=== PATIENT | male | born 1990 | race Caucasian/White ===

== ENCOUNTER 2018-08-14 12:15 | Emergency (ER) | payer OTHER, SELFPAY ==
[2018-08-14] MEDS ORDERED: NA CHLORIDE 0.9% 1,000 ML ONE (13:17)
--- NOTE | 2018-08-14 13:23 | RAD REPORT ---
EXAM DESCRIPTION: CT - Stone Protocol - 08/14/2018 1:02 pm CLINICAL HISTORY: Hematuria, dysuria, left flank pain COMPARISON: None. TECHNIQUE: Axial 5 mm thick images were obtained without oral or IV contrast. The [id number] span s the entirety of the system including uppermost abdomen and lung bases. All CT scans are performed using dose optimization technique as appropriate and may include automated exposure control or mA/KV adjustment according to patient size. FINDINGS: No hydronephrosis is present and no obstructing ureteral calculi. No suspicious renal mass es. Isodense masses and pyelonephritis are not excluded on a stone protocol CT scan. No urinary bladd er suspicious finding. Imaged portions of the liver, spleen and pancreas show no focal findings on non-contrast imaging. Karla er attenuation indicates a mild diffuse fatty infiltration. No gallbladder or biliary tree abnormalit y. No significant adrenal finding. No suspicious bowel findings. Appendix is normal. No acute GI process seen. No mass or bulky lymphadenopathy. Patient has a very small umbilical hernia containing only fat. No i nguinal hernia is seen. No free air, free fluid or inflammatory stranding. No significant bony abnormality. IMPRESSION: Negative CT stone protocol study. Isodense masses and pyelonephritis are not excluded on stone protocol technique. Incidental note of mild diffuse fatty infiltration of the liver.
[2018-08-14 13:29] LABS: Absolute Lymphocytes (CBC) 1.6 K/uL (0.7-4.9); Absolute Monocytes 1.5 K/uL (0.1-1.3); Basophils % 0.4 % (0-1.3); Eosinophils % 0.3 % (0-4.4); Hematocrit 45.9 % (39.6-49.0); Lymphocytes % 10.1 % (15.3-44.8); MCV 87.9 fL (80-100); MPV 9.6 fL (7.6-11.3); RBC Red Blood Cell Count 5.22 M/uL (4.33-5.43)
[2018-08-14 13:43] LABS: Albumin 3.6 g/dL (3.4-5.0); Bilirubin Direct 0.2 mg/dL (0-0.2); Bilirubin Total 0.7 mg/dL (0.2-1.0); Potassium 3.9 mmol/L (3.5-5.1); Protein, Total 7.7 g/dL (6.4-8.2)
[2018-08-14 14:05] LABS: Urine Blood 3+ (NEG); Urine Glucose NEGATIVE (NEG); Urine Protein 2+ (NEG); Urine Specific Gravity 1.025 (1.005-1.030)
[2018-08-14] MEDS ORDERED: CEFTRIAXONE/SWI 1gm 1 GM/10 ML SYR ONE (14:17)
--- NOTE | 2018-08-14 15:57 | ER ---
Nurse's Notes [facility] Name: Ace Brasher Age: 27 yrs Sex: Male : 1990 Arrival Date: 08/14/2018 Time: 12:17 Bed 8 Private MD: Diagnosis: Urinary tract infection, site not specified Presentation: 08/14 12:36 Presenting complaint: Patient states: Blood in urine and painful urination since aj yesterday. Reports occasional sharp pain to left flank this AM. Transition of care: patient was not received from another setting of care. Onset of symptoms was August 13, 2018. Risk Assessment: Do you want to hurt yourself or someone else? Patient reports no desire to harm self or others. Initial Sepsis Screen: Does the patient meet any 2 criteria? No. Patient's initial sepsis screen is negative. Does the patient have a suspected source of infection? No. Patient's initial sepsis screen is negative. Care prior to arrival: None. 12:36 Method Of Arrival: Ambulatory aj 12:36 Acuity: KRISTIE 3 aj Triage Assessment: 12:37 General: Appears in no apparent distress. uncomfortable, Behavior is calm, cooperative, aj appropriate for age. Pain: Complains of pain in pelvis. Neuro: Level of Consciousness is awake, alert, obeys commands, Oriented to person, place, time, situation, Appropriate for age. Respiratory: Airway is patent Respiratory effort is even, unlabored, Respiratory pattern is regular, symmetrical. : Reports burning with urination, pain in left flank(s), blood in urine. Derm: Skin is intact, is healthy with good turgor, Skin is pink, warm \\T\\ dry. normal. 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 - Social history:: Smoking status: Patient uses tobacco products, smokes one-half pack cigarettes per day. - Ebola Screening: : Patient negative for fever greater than or equal to 101.5 degrees Fahrenheit, and additional compatible Ebola Virus Disease symptoms Patient denies exposure to infectious person Patient denies travel to an Ebola-affected area in the 21 days before illness onset No symptoms or risks identified at this time. Screenin:58 Abuse screen: Denies threats or abuse. Nutritional screening: No deficits noted. tw2 Tuberculosis screening: No symptoms or risk factors identified. Fall Risk None identified. Assessment: 12:59 General: Appears in no apparent distress. Behavior is calm, cooperative, appropriate tw2 for age. Pain: Complains of pain in left flank. Neuro: Level of Consciousness is awake, alert, obeys commands, Oriented to person, place, time, situation. Cardiovascular: Heart tones S1 S2 Patient's skin is warm and dry. Respiratory: Airway is patent Respiratory effort is even, unlabored, Respiratory pattern is regular, symmetrical, Breath sounds are clear bilaterally. GI: No signs and/or symptoms were reported involving the gastrointestinal system. : Reports burning with urination. EENT: No signs and/or symptoms were reported regarding the EENT system. Derm: No signs and/or symptoms reported regarding the dermatologic system. Musculoskeletal: Range of motion: intact in all extremities. 13:22 Reassessment: PT RETURNED FROM CT. ALL CURRENT ORDERS COMPLETED, RESULTS PENDING. VS bp STABLE ON MONITOR. 14:07 Reassessment: Patient appears in no apparent distress at this time. No changes from tw2 previously documented assessment. Patient and/or family updated on plan of care and expected duration. Pain level reassessed. Patient is alert, oriented x 3, equal unlabored respirations, skin warm/dry/pink. 15:00 Reassessment: Patient appears in no apparent distress at this time. No changes from tw2 previously documented assessment. Patient and/or family updated on plan of care and expected duration. Pain level reassessed. Patient is alert, oriented x 3, equal unlabored respirations, skin warm/dry/pink. 16:02 Reassessment: Patient appears in no apparent distress at this time. No changes from tw2 previously documented assessment. Patient and/or family updated on plan of care and expected duration. Pain level reassessed. Patient is alert, oriented x 3, equal unlabored respirations, skin warm/dry/pink. Vital Signs: 12:37 BP 125 / 87; Pulse 97; Resp 17; Temp 98.5; Pulse Ox 96% on R/A; Weight 127.01 kg; aj Height 5 ft. 7 in. (170.18 cm); 13:25 BP 114 / 81; Pulse 82; Resp 16; Pulse Ox 94% ; bp 14:07 BP 122 / 73; Pulse 81; Resp 17; Pulse Ox 97% on R/A; tw2 14:39 BP 90 / 77; Pulse 82; Resp 14; Pulse Ox 96% ; bp 16:03 BP 114 / 71; Pulse 80; Resp 17; Pulse Ox 99% on R/A; tw2 12:37 Body Mass Index 43.85 (127.01 kg, 170.18 cm) ED Course: 12:17 Patient arrived in ED. mr 12:31 Rod Bobby, GUILLERMO is PHCP. jmm 12:31 Kumar Hankins MD is Attending Physician. [facility] 12:37 Triage completed. aj 12:37 Arm band placed on left wrist. Patient placed in an exam room. 12:40 Bed in low position. Call light in reach. Pulse ox on. NIBP on. tw2 12:57 Arlene Roberson, MUSA is Primary Nurse. tw2 12:[address] via wheelchair. 3 13:02 CT completed. Patient tolerated procedure well. Patient moved back from CT. 3 13:03 CT Stone Protocol In Process Unspecified. EDMS 13:14 Initial lab(s) drawn, by wi, sent to lab. Inserted saline lock: 22 gauge in right jb1 antecubital area, using aseptic technique. Blood collected. 15:30 Patient moved to radiology via stretcher. 1 15:31 X-ray completed. Patient tolerated procedure well. 1 15:35 Chest Pa And Lat (2 Views) XRAY In Process Unspecified. EDMS 16:03 No provider procedures requiring assistance completed. IV discontinued, intact, tw2 bleeding controlled, No redness/swelling at site. Pressure dressing applied. Administered Medications: 13:20 Drug: NS 0.9% 1000 ml Route: IV; Rate: 1 bolus; Site: right antecubital; bp 15:20 Follow up: Response: No adverse reaction; IV Status: Completed infusion; IV Intake: tw2 1000ml 14:13 Drug: Rocephin - (cefTRIAXone) 1 grams {Note: IVP available only from pharmacy, tw2 provider aware.} Route: IVPB; Infused Over: 5 mins; Site: right antecubital; 14:17 Follow up: IV Status: Completed infusion tw2 15:02 Follow up: Response: No adverse reaction tw2 Intake: 15:20 IV: 1000ml; Total: 1000ml. tw2 Outcome: 15:57 Discharge ordered by . karoline 16:03 Discharged to home ambulatory. tw2 16:03 Condition: stable 16:03 Discharge instructions given to patient, Instructed on discharge instructions, follow up and referral plans. medication usage, Demonstrated understanding of instructions, follow-up care, medications, Prescriptions given X 1. 16:03 Patient left the ED. tw2 Signatures: Dispatcher [employer] EDMS Norberto Hall jb1 Talia Fang, RN RN Rod Frank PA PA jmm Rivera, Mary mr OsielJocelynn mh1 Arlene Roberson RN RN tw2 Ron Coley RN RN Lynn Harrell mw3
--- NOTE | 2018-08-14 15:57 | EDPHYS ---
Physician Documentation [facility] Name: Ace Brasher Age: 27 yrs Sex: Male : 1990 Arrival Date: 08/14/2018 Time: 12:17 Bed 8 Private MD: ED Physician Kumar Hankins HPI: 08/14 12:52 This 27 yrs old Male presents to ER via Ambulatory with complaints of Urinary jmm Problem, Fever, Dizziness. 12:52 The patient complains of pain in the left flank. The pain does not radiate. Onset: The jmm symptoms/episode began/occurred gradually, 1 day(s) ago. Associated signs and symptoms: Pertinent positives: dysuria, fever, hematuria. This is a 27 year old male with a history of histocytosis that presents to the ED with right flank pain beginning yesterday with dysuria. . 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 - Social history:: Smoking status: Patient uses tobacco products, smokes one-half pack cigarettes per day. - Ebola Screening: : Patient negative for fever greater than or equal to 101.5 degrees Fahrenheit, and additional compatible Ebola Virus Disease symptoms Patient denies exposure to infectious person Patient denies travel to an Ebola-affected area in the 21 days before illness onset No symptoms or risks identified at this time. ROS: 12:52 Eyes: Negative for injury, pain, redness, and discharge, Cardiovascular: Negative for jmm chest pain, palpitations, and edema, Respiratory: Negative for shortness of breath, cough, wheezing, and pleuritic chest pain. 12:52 MS/Extremity: Negative for injury and deformity, Skin: Negative for injury, rash, and discoloration, Neuro: Negative for headache, weakness, numbness, tingling, and seizure. 12:52 Constitutional: Positive for fever. 12:52 Abdomen/GI: Positive for left flank pain. 12:52 Back: Positive for flank pain, on the left. 12:52 All other systems are negative. Exam: 12:52 Head/Face: atraumatic. Chest/axilla: Normal chest wall appearance and motion. [facility] Cardiovascular: Regular rate and rhythm. No edema appreciated Respiratory: Normal respirations, no respiratory distress appreciated Abdomen/GI: Non distended, soft 12:52 Skin: General appearance color normal MS/ Extremity: Moves all extremities, no obvious deformities appreciated, no edema noted to the lower extremities Neuro: Awake and alert, normal gait 12:52 Constitutional: The patient appears in no acute distress, alert, awake. 12:52 Respiratory: the patient does not display signs of respiratory distress, Respirations: normal, Breath sounds: are clear throughout. 12:52 Abdomen/GI: Inspection: abdomen appears normal, Bowel sounds: normal, Palpation: abdomen is soft and non-tender, in all quadrants. 12:52 Back: CVA tenderness, is absent. Vital Signs: 12:37 BP 125 / 87; Pulse 97; Resp 17; Temp 98.5; Pulse Ox 96% on R/A; Weight 127.01 kg; aj Height 5 ft. 7 in. (170.18 cm); 13:25 BP 114 / 81; Pulse 82; Resp 16; Pulse Ox 94% ; bp 14:07 BP 122 / 73; Pulse 81; Resp 17; Pulse Ox 97% on R/A; tw2 14:39 BP 90 / 77; Pulse 82; Resp 14; Pulse Ox 96% ; bp 16:03 BP 114 / 71; Pulse 80; Resp 17; Pulse Ox 99% on R/A; tw2 12:37 Body Mass Index 43.85 (127.01 kg, 170.18 cm) MDM: 12:51 Patient medically screened. [facility] 15:52 Data reviewed: vital signs, nurses notes, lab test result(s). Counseling: I had a [facility] detailed discussion with the patient and/or guardian regarding: the historical points, exam findings, and any diagnostic results supporting the discharge/admit diagnosis, lab results, radiology results, the need for outpatient follow up, to return to the emergency department if symptoms worsen or persist or if there are any questions or concerns that arise at home. 15:52 ED course: Symptoms appear consistent with UTI, CT was negative for an acute [facility] intraabdominal process. Patient given strict return precautions and otherwise advised to follow up with PCP. patient understood and agrees with the plan of care. . 08/14 12:51 Order name: Basic Metabolic Panel [facility] 08/14 12:51 Order name: CBC with Diff; Complete Time: 14:06 [facility] 08/14 12:51 Order name: Creatinine for Radiology; Complete Time: 14:56 [facility] 08/14 12:51 Order name: Hepatic Function; Complete Time: 14:06 [facility] 08/14 12:51 Order name: Lipase; Complete Time: 14:06 [facility] 08/14 12:51 Order name: Basic Metabolic Panel; Complete Time: 14:06 [facility] 08/14 12:51 Order name: CT Stone Protocol; Complete Time: 13:40 [facility] 08/14 12:51 Order name: Urine Culture [facility] 08/14 12:52 Order name: Urine Culture [facility] 08/14 13:21 Order name: Urine Dipstick--Ancillary (enter results); Complete Time: 14:06 3 08/14 14:34 Order name: Chest Pa And Lat (2 Views) XRAY [facility] 08/14 14:34 Order name: Influenza Screen (a \\T\\ B); Complete Time: 15:28 [facility] 08/14 12:51 Order name: IV Saline Lock; Complete Time: 13:15 [facility] 08/14 12:51 Order name: Labs collected and sent; Complete Time: 13:15 [facility] Administered Medications: 13:20 Drug: NS 0.9% 1000 ml Route: IV; Rate: 1 bolus; Site: right antecubital; bp 15:20 Follow up: Response: No adverse reaction; IV Status: Completed infusion; IV Intake: tw2 1000ml 14:13 Drug: Rocephin - (cefTRIAXone) 1 grams {Note: IVP available only from pharmacy, tw2 provider aware.} Route: IVPB; Infused Over: 5 mins; Site: right antecubital; 14:17 Follow up: IV Status: Completed infusion tw2 15:02 Follow up: Response: No adverse reaction tw2 Disposition: 18:03 Co-signature as Attending Physician, Kumar Hankins MD. rn Disposition: 08/14/18 15:57 Discharged to Home. Impression: Urinary tract infection, site not specified. - Condition is Stable. - Discharge Instructions: Urinary Tract Infection, Adult. - Prescriptions for cefpodoxime 200 mg Oral Tablet - take 1 tablet by ORAL route every 12 hours for 10 days with food; 20 tablet. - Medication Reconciliation Form, Thank You Letter, Antibiotic Education, Prescription Opioid Use, Work release form form. - Follow up: Private Physician; When: 2 - 3 days; Reason: Recheck today's complaints, Continuance of care, Re-evaluation by your physician. Signatures: Dispatcher [employer] Talia Oconnell RN RN Rod Frank PA PA jmm Nieto, Roman, MD MD rn Wise, Tara, RN RN tw2 Ron Coley RN RN bp Corrections: (The following items were deleted from the chart) 16:03 15:57 08/14/2018 15:57 Discharged to Home. Impression: Urinary tract infection, site tw2 not specified. Condition is Stable. Forms are Work release form, Medication Reconciliation Form, Thank You Letter, Antibiotic Education, Prescription Opioid Use. Follow up: Private Physician; When: 2 - 3 days; Reason: Recheck today's complaints, Continuance of care, Re-evaluation by your physician. karoline
--- NOTE | 2018-08-14 16:30 | RAD REPORT ---
EXAM DESCRIPTION: Esdras Mooney (2 Views)08/14/2018 3:36 pm CLINICAL HISTORY: Cough COMPARISON: None FINDINGS: The lungs appear clear of acute infiltrate. The heart is normal size IMPRESSION: No acute abnormalities displayed
== END 2018-08-14 16:03 | disposition home or self-care (01) ==
LOC: ER 12:15
DX: N39.0 Urinary tract infection, site not specified (principal); R31.9 Hematuria, unspecified; F17.210 Nicotine dependence, cigarettes, uncomplicated
CPT/HCPCS: 36415; 71046; 74176; 76377; 80048; 80076; 81003; 83690; 85025; 87077; 87086; 87088; 87186; 87804; 96361; 96374; 99284; J0696; J7030

== ENCOUNTER 2021-06-14 02:32 | Emergency (ER) | payer SELFPAY ==
--- OUTSIDE RECORDS SUMMARY | 2021-06-14 02:35 | XMS REPORT | Continuity of Care Document ---
:1990 Author Organization [facility] t Address [address] [place] [address] Care Team Providers Name Role Phone Unavailable Unavailable Unavailable Problems Condition Condition Condition Status Onset Resolution Last Treating Co mments Source Name Details Category Date Date Treatment Clinician Date Morbid Morbid Problem Active [facility] ([facility] obesity obesity Memoria due to due to l excess excess Outpati calories calories ent Clinics Internal Internal Diagnosis Active [facility] derangemen derangemen Emmie kes - t of left t of left [facility] Body mass Body mass Diagnosis Active [facility] index index [facility] - (BMI) of (BMI) of Memori a 40.0-44.9 40.0-44.9 l in adult in adult Outdet i ent Clinics Pain, Pain, Diagnosis Active [facility] joint, joint, [facility] - knee, left knee, left Me moria l [facility] ent Clinics Allergies, Adverse Reactions, Alerts This patient has no known allergies or adverse reactions. Medications This patient has no known medications. Procedures This patient has no known procedures. Encounters Start End Encounter Admission Attending Care Care Encounter Source Date/Time Date/Time Type Type Clinicians Facility Department ID 2019-01-27 2019-01-27 Outpatient Emily Diazt [id number] [facility] [address] 09:30:00 09:30:00 [facility] and [facility] Joint [facility] ent Clinics Results This patient has no known results.
[2021-06-14 06:24] LABS: Absolute Lymphocytes (CBC) 1.4 K/uL (0.7-4.9); Basophils % 0.6 % (0-1.3); Hematocrit 44.6 % (39.6-49.0); Lymphocytes % 12.6 % (15.3-44.8); MPV 9.3 fL (7.6-11.3); Protime INR 1.21; RBC Red Blood Cell Count 5.04 M/uL (4.33-5.43)
[2021-06-14 06:42] LABS: ALT/SGPT 48 U/L (12-78); AST/SGOT 20 U/L (15-37); Albumin 4.2 g/dL (3.4-5.0); Alkaline Phosphatase 55 U/L (45-117); BUN Blood Urea Nitrogen 12 mg/dL (7-18); Bicarbonate 30 mmol/L (21-32); Bilirubin Direct < 0.1 mg/dL (0-0.2); Bilirubin Total 0.4 mg/dL (0.2-1.0); Glucose Level 109 mg/dL (74-106); Magnesium 2.3 mg/dL (1.8-2.4); NT PRO-BNP 17 pg/mL (<125); Potassium 4.2 mmol/L (3.5-5.1); Protein, Total 7.9 g/dL (6.4-8.2); Sodium Level 140 mmol/L (136-145); Troponin (Emerg Dept Use Only) < 0.02 ng/mL (0.0-0.045)
--- NOTE | 2021-06-14 09:09 | RAD REPORT ---
EXAM DESCRIPTION: RAD - Chest Single View - 06/14/2021 6:12 am CLINICAL HISTORY: CHEST PAIN Chest pain. COMPARISON: Chest Pa And Lat (2 Views) dated 08/14/2018 FINDINGS: Portable technique limits examination quality. The lungs are grossly clear. The heart is normal in size. No displaced fractures. IMPRESSION: No acute intrathoracic process suspected.
--- NOTE | 2021-06-14 09:52 | EDPHYS ---
Physician Documentation [facility] Name: Ace Brasher Age: 30 yrs Sex: Male : 1990 Arrival Date: 06/14/2021 Time: 02:36 Bed 13 Private MD: ED Physician Dez Renee HPI: 06/14 06:30 This 30 yrs old Male presents to ER via Ambulatory with complaints of jmm Unsteady Heartbeat, Chest Pain. 06:30 The patient presents with a history of irregular heart beat, heart racing, heart jmm skipping beats. Onset: The symptoms/episode began/occurred acutely, 3 hour(s) ago. Duration: The patient or guardian reports multiple episodes, that are intermittent. Modifying factors: The symptoms are aggravated by nothing. The symptoms are alleviated by nothing. Associated signs and symptoms: Pertinent negatives: chest pain, cough. Is a 30-year-old male with no chronic medical conditions who presents emerge department with complaints of irregular heartbeat beginning approximately 3 hours prior to arrival. Patient denies ingesting any stimulants recently. Patient does smoke and vape tobacco and nicotine products. Patient states when the symptoms developed his heart rate was around 170 and complains of abnormal sensations to his extremities and face.. Historical: - Allergies: 02:55 No Known Allergies; wg - Home Meds: 02:55 None [Active]; wg - PMHx: 02:55 "histocystosis"; wg - PSHx: 02:55 None; wg - Immunization history:: Adult Immunizations. - Social history:: Smoking status: Patient reports the use of cigarette tobacco products, smokes one pack cigarettes per day. Reported history of juuling and/or vaping. - Family history:: not pertinent. - Code Status:: Full code. - History obtained from: significant other. - Coronavirus screen:: The patient has NOT traveled to [place] in the past 14 days. The patient has NOT had contact with known/suspected case of Coronavirus?. - Ebola Screening: : Patient negative for fever greater than or equal to 101.5 degrees Fahrenheit, and additional compatible Ebola Virus Disease symptoms Patient denies exposure to infectious person Patient denies travel to an Ebola-affected area in the 21 days before illness onset No symptoms or risks identified at this time. ROS: 06:30 Constitutional: Negative for fever, chills, and weight loss. [facility] 06:30 Cardiovascular: Positive for palpitations. 06:30 Neuro: Positive for tingling. 06:30 All other systems are negative. Exam: 06:30 Constitutional: This is a well developed, well nourished patient who is awake, alert, jmm and in no acute distress. Head/Face: atraumatic. Eyes: EOMI, no conjunctival erythema appreciated ENT: Moist Mucus Membranes Neck: Trachea midline, Supple Chest/axilla: Normal chest wall appearance and motion. Cardiovascular: Regular rate and rhythm. No edema appreciated Respiratory: Normal respirations, no respiratory distress appreciated Abdomen/GI: Non distended, soft Back: Normal ROM Skin: General appearance color normal MS/ Extremity: Moves all extremities, no obvious deformities appreciated, no edema noted to the lower extremities Neuro: Awake and alert, normal gait Psych: Behavior is normal, Mood is normal, Patient is cooperative and pleasant Vital Signs: 02:47 BP 115 / 78; Pulse 82; Resp 18; Temp 98.6; Pulse Ox 100% on R/A; Weight 129.27 kg; wg Height 5 ft. 7 in. (170.18 cm); Pain 0/10; 06:00 BP 110 / 75; Pulse 59; Resp 16 S; Pulse Ox 97% on R/A; bb 08:10 BP 124 / 86; Pulse 70; Resp 20; Temp 97.0; Pulse Ox 96% on NC; kh1 02:47 Body Mass Index 44.64 (129.27 kg, 170.18 cm) wg MDM: 06:28 Patient medically screened. [facility] 09:34 Data reviewed: vital signs, nurses notes. Counseling: I had a detailed discussion with [facility] the patient and/or guardian regarding: the historical points, exam findings, and any diagnostic results supporting the discharge/admit diagnosis, lab results, radiology results, the need for outpatient follow up, to return to the emergency department if symptoms worsen or persist or if there are any questions or concerns that arise at home. 06/14 05:59 Order name: Basic Metabolic Panel 06/14 05:59 Order name: CBC with Diff 06/14 05:59 Order name: LFT's; Complete Time: 06:42 06/14 05:59 Order name: Magnesium; Complete Time: 06:42 06/14 05:59 Order name: NT PRO-BNP; Complete Time: 06:42 bb 06/14 05:59 Order name: PT-INR; Complete Time: 06:37 bb 06/14 05:59 Order name: Troponin (emerg Dept Use Only); Complete Time: 06:42 bb 06/14 05:59 Order name: XRAY Chest (1 view); Complete Time: 09:31 bb 06/14 05:59 Order name: EKG; Complete Time: 06:00 bb 06/14 05:59 Order name: Cardiac monitoring; Complete Time: 06:07 bb 06/14 05:59 Order name: EKG - Nurse/Tech; Complete Time: 05:59 bb 06/14 05:59 Order name: IV Saline Lock; Complete Time: 05:59 bb 06/14 06:00 Order name: Basic Metabolic Panel; Complete Time: 06:42 EDMS 06/14 06:00 Order name: CBC with Automated Diff; Complete Time: 06:37 EDMS 06/14 05:59 Order name: Labs collected and sent; Complete Time: 05:59 bb 06/14 05:59 Order name: O2 Per Protocol; Complete Time: 05:59 bb 06/14 05:59 Order name: O2 Sat Monitoring; Complete Time: 05:59 bb Administered Medications: No medications were administered Disposition Summary: 06/14/21 09:51 Discharge Ordered Location: Home [facility] Condition: Stable [facility] Diagnosis - Palpitations [facility] Followup: [facility] - With: Rudy Cabezas MD - When: 2 - 3 days - Reason: Recheck today's complaints, Continuance of care, Re-evaluation by your physician Discharge Instructions: - Discharge Summary Sheet [facility] - Palpitations [facility] Forms: - Medication Reconciliation Form [facility] - Thank You Letter [facility] - Antibiotic Education [facility] - Prescription Opioid Use [facility] Addendum: 06/15/2021 13:01 Co-signature as Attending Physician, Dez arnold Signatures: Dispatcher [employer] EDDez Jacobo MD MD pkl Mickail, Joel, PA PA jmm Ballard, Brenda, RN RN Gaetano Cuenca
--- NOTE | 2021-06-14 09:52 | ER ---
Nurse's Notes [facility] Name: Ace Brasher Age: 30 yrs Sex: Male : 1990 Arrival Date: 06/14/2021 Time: 02:36 Bed 13 Private MD: Diagnosis: Palpitations Presentation: 06/14 02:47 Chief complaint: Patient states: Pt states he was playing cards tonight and it felt wg like his heart was pounding and his breathing felt funny. Pt states he has been having "weird breathing" for the past 2-3 weeks. Pt states he has been a cigarette smoker as well as marajuana smoker for years and that could be part of it. Pt states he noticed the heart racing just after drinking a Doctor Pepper soda. Pt states he looked at his digital watch which said his HR went as high as 170. Pt denied CP earlier as well as currently. States his hands feel ander numb. Pt denies any feeling of fast heart rate or sob currently. Pt denies dizziness, N/V, headache and Abd pain. Coronavirus screen: Client denies travel out of the [place] in the last 14 days. At this time, the client does not indicate any symptoms associated with coronavirus-19. The client denies any previous COVID testing. Ebola Screen: Patient negative for fever greater than or equal to 101.5 degrees Fahrenheit, and additional compatible Ebola Virus Disease symptoms Patient denies exposure to infectious person. Patient denies travel to an Ebola-affected area in the 21 days before illness onset. No symptoms or risks identified at this time. 02:47 Method Of Arrival: Ambulatory 02:54 Initial Sepsis Screen: Does the patient meet any 2 criteria? No. Patient's initial sepsis screen is negative. Does the patient have a suspected source of infection? No. Patient's initial sepsis screen is negative. Risk Assessment: Do you want to hurt yourself or someone else? Patient reports no desire to harm self or others. Onset of symptoms was June 13, 2021 at 23:00. Care prior to arrival: None. Activity prior to arrival: None. 02:54 Acuity: KRISTIE 3 wg 02:57 Note Pt states he feels weak. Vitals stable, skin pink warm dry. in the company of wg significant other. Triage Assessment: 02:55 General: Appears in no apparent distress. comfortable, obese, Behavior is calm, wg cooperative. Pain: Denies pain. EENT: No deficits noted. Neuro: No deficits noted. Cardiovascular: No deficits noted. Respiratory: No deficits noted. GI: No deficits noted. : No deficits noted. Derm: No deficits noted. Musculoskeletal: No deficits noted. Historical: - Allergies: 02:55 No Known Allergies; wg - Home Meds: 02:55 None [Active]; wg - PMHx: 02:55 "histocystosis"; wg - PSHx: 02:55 None; wg - Immunization history:: Adult Immunizations. - Social history:: Smoking status: Patient reports the use of cigarette tobacco products, smokes one pack cigarettes per day. Reported history of juuling and/or vaping. - Family history:: not pertinent. - Code Status:: Full code. - History obtained from: significant other. - Coronavirus screen:: The patient has NOT traveled to [place] in the past 14 days. The patient has NOT had contact with known/suspected case of Coronavirus?. - Ebola Screening: : Patient negative for fever greater than or equal to 101.5 degrees Fahrenheit, and additional compatible Ebola Virus Disease symptoms Patient denies exposure to infectious person Patient denies travel to an Ebola-affected area in the 21 days before illness onset No symptoms or risks identified at this time. Screenin:57 Abuse screen: Denies threats or abuse. Nutritional screening: No deficits noted. bb Tuberculosis screening: No symptoms or risk factors identified. Fall Risk None identified. Assessment: 05:57 General: Appears in no apparent distress. Behavior is calm, cooperative. Pain: Denies bb pain. Pain does not radiate. symptoms have resolved at this time Pain began suddenly. Neuro: Level of Consciousness is awake, alert, obeys commands, Oriented to person, place, time, Appropriate for age. Cardiovascular: Capillary refill < 3 seconds Patient's skin is warm and dry. Rhythm is sinus rhythm. Respiratory: Respiratory effort is even, unlabored, Respiratory pattern is regular. GI: No signs and/or symptoms were reported involving the gastrointestinal system. Derm: Skin is pink, warm \\T\\ dry. Musculoskeletal: Circulation, motion, and sensation intact. 08:13 Reassessment: assumed care of pt resting quietly in bed. resp even and unlabored. kh1 denies cp at this time. denies sob. states ready to go home. no acute distress noted at this time Patient denies pain at this time. Patient states feeling better. Vital Signs: 02:47 BP 115 / 78; Pulse 82; Resp 18; Temp 98.6; Pulse Ox 100% on R/A; Weight 129.27 kg; wg Height 5 ft. 7 in. (170.18 cm); Pain 0/10; 06:00 BP 110 / 75; Pulse 59; Resp 16 S; Pulse Ox 97% on R/A; bb 08:10 BP 124 / 86; Pulse 70; Resp 20; Temp 97.0; Pulse Ox 96% on NC; kh1 02:47 Body Mass Index 44.64 (129.27 kg, 170.18 cm) wg ED Course: 02:36 Patient arrived in ED. bp1 02:55 Triage completed. wg 02:55 Arm band placed on right wrist. wg 05:57 Patient has correct armband on for positive identification. Pulse ox on. NIBP on. bb 05:57 Patient maintains SpO2 saturation greater than 95% on room air. bb 06:06 Rod Bobby PA is PHCP. [facility] 06:06 Dez Renee MD is Attending Physician. jm 06:07 Basic Metabolic Panel Sent. ch4 06:07 CBC with Diff Sent. ch4 06:07 XRAY Chest (1 view) Sent. ch4 06:07 Inserted saline lock: 20 gauge in right antecubital area, using aseptic technique. ch4 06:12 XRAY Chest (1 view) In Process Unspecified. EDMS 07:16 Susannah Portillo is Primary Nurse. [facility] 09:51 Rudy Cabezas MD is Referral Physician. [facility] 10:49 No provider procedures requiring assistance completed. IV discontinued, intact, jl7 bleeding controlled, No redness/swelling at site. Pressure dressing applied. Administered Medications: No medications were administered Outcome: 09:51 Discharge ordered by . karoline 10:49 Discharged to home ambulatory. jl7 10:49 Condition: stable 10:49 Discharge instructions given to patient, Instructed on discharge instructions, follow up and referral plans. Demonstrated understanding of instructions, follow-up care. 10:50 Patient left the ED. jl7 Signatures: Dispatcher [employer] EDMS Rod Bobby PA PA jmm Ballard, Brenda, RN RN bb Day Nunez RN RN jl7 Lisa Christianson [facility] Arpita Ruffin, RN RN [facility] Bandar, Susannah [facility] Gaetano Walton
[2021-06-14 11:10] VITALS: BP 124/86; TEMP 97; O2SAT 96
== END 2021-06-14 10:50 | disposition home or self-care (01) ==
LOC: ER 02:32
DX: R00.2 Palpitations (principal); F17.210 Nicotine dependence, cigarettes, uncomplicated
CPT/HCPCS: 36415; 71045; 80048; 80076; 83735; 83880; 84484; 85025; 85610; 93005; 99285

== ENCOUNTER 2021-06-16 22:08 | Emergency (ER) | payer BC, SELFPAY ==
--- OUTSIDE RECORDS SUMMARY | 2021-06-16 22:11 | XMS REPORT | Continuity of Care Document ---
:1990 Author Organization [facility] t Address [address] [place] [address] Care Team Providers Name Role Phone Unavailable [...] of left Tomas td knee knee l [facility] ent Clinics Body mass Body mass Diagnosis Active [facility] index index [facility] - (BMI) of (BMI) of Memori a 40.0-44.9 40.0-44.9 l in adult in adult [facility] ent Clinics Pain, Pain, Diagnosis Active [facility] joint, joint, [facility] - knee, left knee, left Me moria l [facility] ent Clinics Allergies, Adverse Reactions, Alerts This patient has no known allergies or adverse reactions. Medications This patient has no known medications. Procedures This patient has no known procedures. Encounters Start End Encounter Admission Attending Care Care Encounter Source Date/Time Date/Time Type Type Clinicians Facility Department ID 2019-01-27 2019-01-27 Outpatient Emily Diazt [id number] [facility] [address] 09:30:00 09:30:00 [facility] ent Clinics Results This patient has no known results.
[2021-06-17] MEDS ORDERED: FAMOTIDINE 20 MG/2 ML VIAL IV ONE (06:14)
[2021-06-17] MEDS ORDERED: ONDANSETRON 4 MG/2 ML VIAL ONE (06:14)
[2021-06-17] MEDS ORDERED: NA CHLORIDE 0.9% 1,000 ML ONE (06:14)
[2021-06-17 06:36] LABS: Absolute Lymphocytes (CBC) 2.2 K/uL (0.7-4.9); Basophils % 0.5 % (0-1.3); Hematocrit 47.5 % (39.6-49.0); Lymphocytes % 22.5 % (15.3-44.8); MPV 9.2 fL (7.6-11.3); RBC Red Blood Cell Count 5.43 M/uL (4.33-5.43)
[2021-06-17 06:40] LABS: Protime INR 1.31
[2021-06-17 07:03] LABS: SARS-COV-2 RT PCR NEGATIVE (NEGATIVE)
[2021-06-17 07:04] LABS: ALT/SGPT 60 U/L (12-78); AST/SGOT 34 U/L (15-37); Albumin 4.3 g/dL (3.4-5.0); Alkaline Phosphatase 57 U/L (45-117); BUN Blood Urea Nitrogen 15 mg/dL (7-18); Bicarbonate 24 mmol/L (21-32); Bilirubin Direct 0.2 mg/dL (0-0.2); Bilirubin Total 0.7 mg/dL (0.2-1.0); Glucose Level 94 mg/dL (74-106); Lipase 110 U/L (73-393); Magnesium 2.4 mg/dL (1.8-2.4); NT PRO-BNP 16 pg/mL (<125); Potassium 3.6 mmol/L (3.5-5.1); Sodium Level 139 mmol/L (136-145); Troponin (Emerg Dept Use Only) < 0.02 ng/mL (0.0-0.045)
--- NOTE | 2021-06-17 07:42 | ER ---
Nurse's Notes [facility] Name: Ace Brasher Age: 30 yrs Sex: Male : 1990 Arrival Date: 06/16/2021 Time: 22:13 Bed 12 Private MD: Diagnosis: Shortness of breath Presentation: 06/16 23:42 Chief complaint: Patient states: difficult breathing. Coronavirus screen: Client denies da3 travel out of the [place] in the last 14 days. Client presents with at least one sign or symptom that may indicate coronavirus-19. Ebola Screen: No symptoms or risks identified at this time. Risk Assessment: Do you want to hurt yourself or someone else? Patient reports no desire to harm self or others. 23:42 Method Of Arrival: Ambulatory da3 23:42 Acuity: KRISTIE 4 da3 Triage Assessment: 23:45 General: Appears in no apparent distress. comfortable, Behavior is calm. da3 - Immunization history:: Client reports having NOT received the Covid vaccine. Screenin/29 04:40 Abuse screen: Denies threats or abuse. Nutritional screening: No deficits noted. bb Tuberculosis screening: No symptoms or risk factors identified. Fall Risk None identified. Assessment: 04:40 General: Appears in no apparent distress. obese, Behavior is calm, cooperative. Pain: bb Denies pain. Neuro: Level of Consciousness is awake, alert, obeys commands, Oriented to person, place, time, situation. Cardiovascular: Capillary refill < 3 seconds Patient's skin is warm and dry. Respiratory: Airway is patent Respiratory effort is even, unlabored, Respiratory pattern is regular. GI: Abdomen is non-distended. Derm: Skin is pink, warm \T\ dry. Musculoskeletal: Circulation, motion, and sensation intact. Vital Signs: 06/16 23:46 BP 117 / 98; Pulse 81; Resp 18; Temp 98.9; Pulse Ox 100% on R/A; Weight 129.27 kg; da3 Height 5 ft. 7 in. (170.18 cm); 06/17 04:41 BP 124 / 96; Pulse 87; Resp 16 S; Temp 97.7(O); Pulse Ox 99% on R/A; bb 06/16 23:46 Body Mass Index 44.64 (129.27 kg, 170.18 cm) da3 ED Course: 06/16 22:13 Patient arrived in ED. cf2 23:44 Triage completed. da3 06/17 04:40 Patient has correct armband on for positive identification. Call light in reach. bb 04:45 Teressa Aragon RN is Primary Nurse. bb 04:47 Rex Magdaleno MD is Attending Physician. 7 06:10 Missed attempt(s): 20 gauge in left antecubital area. tt3 06:10 Initial lab(s) drawn, by me, sent to lab. Inserted saline lock: 20 gauge in right bb antecubital area, using aseptic technique. Blood collected. 06:52 XRAY Chest (1 view) In Process Unspecified. EDMS 07:40 Attending Physician role handed off by Rex Magdaleno MD or2 07:40 Julianna Garg MD is Attending Physician. ma2 07:55 No provider procedures requiring assistance completed. IV discontinued, intact, ss bleeding controlled, No redness/swelling at site. Pressure dressing applied. Administered Medications: 06:00 Drug: NS 0.9% 1000 ml Route: IV; Rate: 1000 ml; Site: right antecubital; bb 06:02 Drug: Zofran (Ondansetron) 4 mg Route: IVP; Site: right antecubital; bb 07:49 Follow up: Response: No adverse reaction ss 06:05 Drug: Pepcid (famotidine) 20 mg Route: IVP; Site: right antecubital; bb 07:49 Follow up: Response: No adverse reaction ss Outcome: 07:41 Discharge ordered by . ma2 07:55 Discharged to home ambulatory. ss 07:55 Condition: good 07:55 Discharge instructions given to patient, family, Instructed on discharge instructions, follow up and referral plans. medication usage, Demonstrated understanding of instructions, follow-up care, medications, Prescriptions given X 2. 07:56 Patient left the ED. ss Signatures: Dispatcher [employer] EDMO Teressa Aragon, Amy López RN, RN RN Julianna Garg MD MD ma2 Frazier, Celesta 2 Rex Magdaleno MD MD 7 Evy, Maicol tt3 Tito Cooper RN RN 3
--- NOTE | 2021-06-17 07:42 | EDPHYS ---
Physician Documentation [facility] Name: Ace Brasher Age: 30 yrs Sex: Male : 1990 Arrival Date: 06/16/2021 Time: 22:13 Bed 12 Private MD: ED Physician Julianna Garg HPI: 06/17 05:45 This 30 yrs old Male presents to ER via Ambulatory with complaints of mh7 Breathing Difficulty, Nausea/Vomiting, Decreased Appetite, Chills, Sweating. 05:45 The patient has shortness of breath at rest, with light activity. Onset: The mh7 symptoms/episode began/occurred 2 day(s) ago. Duration: The symptoms are intermittent, with no pattern. The patient's shortness of breath is aggravated by light activity, is alleviated by nothing. Associated signs and symptoms: Pertinent positives: nausea, vomiting, Pertinent negatives: chest pain, non-productive cough, productive cough, diaphoresis, dizziness, fever, hemoptysis, loss of consciousness, numbness in extremities, visual changes. Severity of symptoms: At their worst the symptoms were moderate 2 day(s) ago, in the emergency department the symptoms have improved moderately. The patient has been recently seen at the [facility] Emergency Department, this week. - Immunization history:: Client reports having NOT received the Covid vaccine. ROS: 05:45 Constitutional: Negative for fever, chills, and weight loss, Eyes: Negative for injury, mh7 pain, redness, and discharge, ENT: Negative for injury, pain, and discharge, Neck: Negative for injury, pain, and swelling, Cardiovascular: Negative for chest pain, palpitations, and edema, Back: Negative for injury and pain, : Negative for injury, bleeding, discharge, and swelling, MS/Extremity: Negative for injury and deformity, Skin: Negative for injury, rash, and discoloration, Neuro: Negative for headache, weakness, numbness, tingling, and seizure, Psych: Negative for depression, anxiety, suicide ideation, homicidal ideation, and hallucinations, Allergy/Immunology: Negative for hives, rash, and allergies, Endocrine: Negative for neck swelling, polydipsia, polyuria, polyphagia, and marked weight changes, Hematologic/Lymphatic: Negative for swollen nodes, abnormal bleeding, and unusual bruising. Exam: 05:45 Constitutional: This is a well developed, well nourished patient who is awake, alert, mh7 and in no acute distress. Head/Face: Normocephalic, atraumatic. Eyes: Pupils equal round and reactive to light, extra-ocular motions intact. Lids and lashes normal. Conjunctiva and sclera are non-icteric and not injected. Cornea within normal limits. Periorbital areas with no swelling, redness, or edema. Neck: Trachea midline, no thyromegaly or masses palpated, and no cervical lymphadenopathy. Supple, full range of motion without nuchal rigidity, or vertebral point tenderness. No Meningismus. Chest/axilla: Normal chest wall appearance and motion. Nontender with no deformity. No lesions are appreciated. Cardiovascular: Regular rate and rhythm with a normal S1 and S2. No gallops, murmurs, or rubs. Normal PMI, no JVD. No pulse deficits. Respiratory: Lungs have equal breath sounds bilaterally, clear to auscultation and percussion. No rales, rhonchi or wheezes noted. No increased work of breathing, no retractions or nasal flaring. Abdomen/GI: Soft, non-tender, with normal bowel sounds. No distension or tympany. No guarding or rebound. No evidence of tenderness throughout. Back: No spinal tenderness. No costovertebral tenderness. Full range of motion. Skin: Warm, dry with normal turgor. Normal color with no rashes, no lesions, and no evidence of cellulitis. MS/ Extremity: Pulses equal, no cyanosis. Neurovascular intact. Full, normal range of motion. Neuro: Awake and alert, GCS 15, oriented to person, place, time, and situation. Cranial nerves II-XII grossly intact. Motor strength 5/5 in all extremities. Sensory grossly intact. Cerebellar exam normal. Normal gait. Psych: Awake, alert, with orientation to person, place and time. Behavior, mood, and affect are within normal limits. Vital Signs: 06/16 23:46 BP 117 / 98; Pulse 81; Resp 18; Temp 98.9; Pulse Ox 100% on R/A; Weight 129.27 kg; da3 Height 5 ft. 7 in. (170.18 cm); 06/17 04:41 BP 124 / 96; Pulse 87; Resp 16 S; Temp 97.7(O); Pulse Ox 99% on R/A; bb 06/16 23:46 Body Mass Index 44.64 (129.27 kg, 170.18 cm) da3 MDM: 07:08 Transition of care: After a detail discussion of the patient's case, care is 7 transferred to Julianna Garg MD. 07:40 Patient medically screened. ma2 07:40 Differential diagnosis: Bronchitis pneumonia, Psychogenic reactive airway disease. ma2 Antibiotic administration: The patient is discharged and will get outpatient antibiotics. The patient's Wells Deep Vein Thrombosis Score was calculated as follows: No Risks (0 Pts). Data reviewed: vital signs, nurses notes. Counseling: I had a detailed discussion with the patient and/or guardian regarding: the historical points, exam findings, and any diagnostic results supporting the discharge/admit diagnosis, the presence of at least one elevated blood pressure reading (>120/80) during this emergency department visit, lab results, radiology results, the need for outpatient follow up. Response to treatment: the patient's symptoms have resolved after treatment. 06/17 05:44 Order name: Basic Metabolic Panel [facility] 06/17 05:44 Order name: CBC with Diff [facility] 06/17 05:44 Order name: LFT's [facility] 06/17 05:44 Order name: Magnesium [facility] 06/17 05:44 Order name: NT PRO-BNP; Complete Time: 07:13 [facility] 06/17 05:44 Order name: PT-INR; Complete Time: 06:53 [facility] 06/17 05:44 Order name: Troponin (emerg Dept Use Only); Complete Time: 07:13 [facility] 06/17 05:44 Order name: Lipase; Complete Time: 07:13 [facility] 06/17 05:45 Order name: Basic Metabolic Panel; Complete Time: 07:13 EDMS 06/17 05:45 Order name: CBC with Automated Diff; Complete Time: 06:53 EDTN 06/17 05:45 Order name: Liver (Hepatic) Function; Complete Time: 07:13 EDMS 06/17 05:44 Order name: XRAY Chest (1 view) [facility] 06/17 05:44 Order name: Cardiac monitoring [facility] 06/17 05:44 Order name: EKG - Nurse/Tech [facility] 06/17 05:44 Order name: IV Saline Lock [facility] 06/17 05:44 Order name: Labs collected and sent [facility] 06/17 05:44 Order name: O2 Per Protocol [facility] 06/17 05:44 Order name: O2 Sat Monitoring [facility] 06/17 05:44 Order name: Urine Dipstick-Ancillary (obtain specimen) [facility] 06/17 05:45 Order name: Magnesium; Complete Time: 07:13 EDMS 06/17 07:03 Order name: COVID-19/FLU A+B; Complete Time: 07:13 EDMS Administered Medications: 06:00 Drug: NS 0.9% 1000 ml Route: IV; Rate: 1000 ml; Site: right antecubital; bb 06:02 Drug: Zofran (Ondansetron) 4 mg Route: IVP; Site: right antecubital; bb 07:49 Follow up: Response: No adverse reaction ss 06:05 Drug: Pepcid (famotidine) 20 mg Route: IVP; Site: right antecubital; bb 07:49 Follow up: Response: No adverse reaction ss Disposition Summary: 06/17/21 07:41 Discharge Ordered Location: Home ma2 Condition: Stable ma2 Diagnosis - Shortness of breath ma2 Followup: ma2 - With: Private Physician - When: Tomorrow - Reason: Continuance of care Discharge Instructions: - Discharge Summary Sheet ma2 - Shortness of Breath, Adult, [id number] ma2 Forms: - Medication Reconciliation Form ma2 - Thank You Letter ma2 - Antibiotic Education ma2 - Prescription Opioid Use ma2 Prescriptions: - Zithromax Z-Chaim 250 mg Oral Tablet - take 1 tablet by ORAL route as directed for 5 days Day 1 - take two (2) tablets ma2 one time. Day 2, 3, 4 , 5 take one (1) tablet once daily.; 6 tablet; Refills: 0, Product Selection Permitted - Medrol (Chaim) 4 mg Oral Tablets, Dose Pack - take 1 tablet by ORAL route as directed - follow package instructions; 1 ma2 packet; Refills: 0, Product Selection Permitted Signatures: Dispatcher [employer] Teressa Figueroa RN RN Julianna Galvin MD MD fl2 Rex Magdaleno MD MD 7 Tito Cooper RN RN 3 Amy Benz RN ss Corrections: (The following items were deleted from the chart) 06:20 05:45 CORONAVIRUS+MR.LAB.EDNA ordered. EDMS EDMS 06:22 05:45 Influenza Screen (A \T\ B)+BA.LAB.EDNA ordered. EDMS EDMS
[2021-06-17 08:04] VITALS: BP 124/96; TEMP 97.7; O2SAT 99
--- NOTE | 2021-06-17 09:11 | RAD REPORT ---
EXAM DESCRIPTION: Esdras Single View06/17/2021 6:52 am CLINICAL HISTORY: sob COMPARISON: June 14, 2021 FINDINGS: The lungs appear clear of acute infiltrate. The heart is normal size IMPRESSION: No acute abnormalities displayed
== END 2021-06-17 07:56 | disposition home or self-care (01) ==
LOC: ER 22:08
DX: R06.02 Shortness of breath (principal); Z20.822 Contact with and (suspected) exposure to COVID-19
CPT/HCPCS: 85025; 80048; 36415; 83735; 85610; 80076; 84484; 83690; 83880; 0240U; 71045; 96375; 96374; 99284; J7030; J2405

== ENCOUNTER 2023-08-12 23:57 | Emergency (ER) | payer OTHER ==
--- OUTSIDE RECORDS SUMMARY | 2023-08-12 23:59 | XMS REPORT | Continuity of Care Document ---
:1990 Author Organization [facility] t Address [address] [place] [id number] Care Team Providers Name Role Phone Pcp, Patient Does Not Have A Primary Care Physician +[id number] JORDYN TORREZ Attending Clinician Unavailable SHARON QUEVEDO Attending Clinician Unavailable Evita Jacinto MD Attending Clinician EVITA JACINTO Attending Clinician Unavailable Payers Payer Name Policy Type Policy Number Effective Date Expiration Date S [facility] 3 [id number] 2023 00:00:00 Problems Condition Condition Condition Status Onset Resolution Last Treating Co mments Source Name Details Category Date Date Treatment Clinician Date Generalize Generalize Disease Active Hannah ferrell anxiety 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:00: - with panic with panic 00 Ex terna attacks attacks l Well adult Well adult Disease Active Hannah beck exam exam 05-19 Seybold 00:00: - 00 Externa l Obesity Obesity Disease Active Juliane 6- Seybold 00:00: - 00 Externa l Shortness Shortness Disease Active Rolly sey of breath of breath 6-21 Seyb old 00:00: - 00 Externa l ISIDORO ISIDORO Disease Active Juliane (obstructi (obstructi - Se ybold ve sleep ve sleep 00:00: - apnea) apnea) 00 Externa l Gastroesop Gastroesop Disease Active K elsey hageal hageal 04-09 Seybold reflux reflux 00:00: - disease disease 00 Externa without without l esophagiti esophagiti s s Oropharyng Oropharyng Disease Active K kiran eal eal 04-09 Seybold dysphagia dysphagia 00:00: - 00 Externa l Histiocyto Histiocyto Disease Active K kiran sis sis 04-09 Seybold 00:00: - 00 Externa l Morbid Morbid Problem Active Common (severe) (severe) Spirit obesity obesity - [facility] due to due to [facility] Internal Internal Diagnosis Active Com mon derangemen derangemen Sp geni t of left t of left - [facility] I knee knee [facility] Body mass Body mass Diagnosis Active C ommon index index Spirit (BMI) of (BMI) of - [facility] 40.0-44.9 40.0-44.9 St in adult in adult [facility] Pain, Pain, Diagnosis Active Common joint, joint, Spirit knee, left knee, left - [facility] Allergies, Adverse Reactions, Alerts Allergy Allergy Status Severity Reaction(s) Onset Inactive Treating Comm ents Source Name Type Date Date Clinician NO KNOWN Drug Active Univers ALLERGIE Class ity of S [facility] Social History Social Habit Start Date Stop Date Quantity Comments Source Exposure to Not sure University of SARS-CoV-2 (event) [facility] Gender identity Juliane marin - External Sexual orientation Juliane Daniel - External History of tobacco Cigarette Smoker Juliane Daniel - use External Alcohol intake 2023-05-19 2023-05-19 Current drinker Grace Daniel - 00:00:00 00:00:00 of alcohol External (finding) Cigarette 2023-04-09 2023-04-09 Juliane Daniel - pack-years 00:00:00 00:00:00 External Tobacco use and 2023-04-09 2023-04-09 Smokeless Juliane marin - exposure 00:00:00 00:00:00 tobacco non-user External History of Social 2023-04-09 2023-04-09 Juliane Daniel - function 00:00:00 00:00:00 External Education 2023-04-09 2023-04-09 16 Juliane Daniel - 00:00:00 00:00:00 External Alcohol Comment 2023-04-09 2023-04-09 rarely Juliane marin - 00:00:00 00:00:00 External Cigarettes smoked 2023-04-09 2023-04-09 Juliane Daniel - current (pack per 00:00:00 00:00:00 Externa l day) - Reported Sex Ass[birth year] At [birth year] Juliane marin - 00:00:00 00:00:00 External Smoking Status Start Date Stop Date Source Unknown if ever smoked [facility] Ex-smoker 2023-04-09 00:00:00 2023-04-09 00:00:00 Julianeshelton lema - External Medications Ordered Filled Start Stop Current Ordering Indication Dosage Frequency Signature Comments Components Source Medication Medication Date Date Medication? Clinician (SIG) Name Name Propranolol Yes [id number] 10mg Q.5D Take 1 Juliane HCl 10 MG 7-31 tablet (10 Seyb old oral Tablet 00:00: mg total) - 00 by mouth 2 Externa times l daily as needed Omeprazole Yes [id number] 40mg Take 1 Juliane 40 MG oral 6-21 capsule Seybol d Delayed 00:00: (40 mg - Release 00 total) by Externa Capsule mouth l daily Albuterol Yes [id number] 2{puff} Q.25D Inhale 2 Juliane HFA 108 (90 6-21 puffs into Se ybold [employer]) 00:00: the lungs - MCG/ACT IN 00 every 6 Environmental Consultant a AERS hours as l needed for wheezing Omeprazole Yes [id number] 40mg Take 1 Juliane 40 MG oral 6-21 capsule Seybol d Delayed 00:00: (40 mg - Release 00 total) by Externa Capsule mouth l daily Albuterol 2022- No [id number] 2{puff} Q.25D Inhale 2 Juliane HFA 108 (90 6-21 07-31 puffs into S eybold [employer]) 00:00: 00:00 the lungs - MCG/ACT IN 00 :00 every 6 Environmental Consultant a AERS hours as l needed for wheezing Vital Signs Vital Name Observation Time Observation Value Comments Source Systolic blood 2023-05-19 13:25:00 115 mm[Hg] Juliane Seybold - pressure External Diastolic blood 2023-05-19 13:25:00 73 mm[Hg] Rollyse y Seybold - pressure External Heart rate 2023-05-19 13:25:00 68 /min Juliane Perdomo eybold - External Body temperature 2023-05-19 13:25:00 36.61 [place] Janelle ey Seybold - External Respiratory rate 2023-05-19 13:25:00 15 /min Janelle ey Seybold - External Body height 2023-05-19 13:25:00 170.2 cm Juliane Perdomo eybold - External Body weight 2023-05-19 13:25:00 109.77 kg Juliane Perdomo eybold - External BMI 2023-05-19 13:25:00 37.90 kg/m2 Juliane Perdomo eybold - External Oxygen saturation in 2023-05-19 13:25:00 99 /min Juliane Guallpaybold - Arterial blood by External Pulse oximetry Systolic blood 2023-04-09 19:02:00 126 mm[Hg] Juliane Seybold - pressure External Diastolic blood 2023-04-09 19:02:00 88 mm[Hg] Grace y Seybold - pressure External Heart rate 2023-04-09 19:02:00 63 /min Juliane Perdomo eybold - External Body temperature 2023-04-09 19:02:00 36.39 [place] Janelle ey Seybold - External Respiratory rate 2023-04-09 19:02:00 14 /min Janelle dickerson Seybold - External Body height 2023-04-09 19:02:00 170.2 cm Juliane Perdomo eybold - External Body weight 2023-04-09 19:02:00 117.482 kg Juliane Perdomo eybold - External BMI 2023-04-09 19:02:00 40.57 kg/m2 Juliane Perdomo eybold - External Oxygen saturation in 2023-04-09 19:02:00 99 /min Juliane Guallpaybold - Arterial blood by External Pulse oximetry Systolic blood 2021-06-28 05:41:00 140 mm[Hg] Univer sity of pressure [facility] Diastolic blood 2021-06-28 05:41:00 89 mm[Hg] Unive rsity of pressure [facility] Heart rate 2021-06-28 05:41:00 76 /min [facility] Body temperature 2021-06-28 05:41:00 36.67 [place] [facility] Respiratory rate 2021-06-28 05:41:00 16 /min [facility] Body height 2021-06-28 05:41:00 170.2 cm [facility] Body weight 2021-06-28 05:41:00 120.203 kg [facility] BMI 2021-06-28 05:41:00 41.50 kg/m2 [facility] Oxygen saturation in 2021-06-28 05:41:00 98 /min [facility] Arterial blood by [facility] Pulse oximetry Branch Procedures This patient has no known procedures. Encounters Start End Encounter Admission Attending Care Care Encounter Source Date/Time Date/Time Type Type Clinicians Facility Department ID 2023-08-08 2023-08-08 Outpatient JULIANE TORREZ [id number] Juliane 00:00:00 00:00:00 JORDYN Seybol d 2023-08-05 2023-08-05 Outpatient JULIANE QUEVEDO [id number] Juliane 13:15:00 13:15:00 SAMER Seybol d 2023-06-24 2023-06-24 Outpatient JULIANE TORREZ [id number] Juliane 08:15:00 08:15:00 JORDYN Seybol d 2023-05-29 2023-05-29 Outpatient JULIANE TORREZ [id number] Juliane 00:00:00 00:00:00 JORDYN Seybol d 2023-05-21 2023-05-21 Outpatient JULIANE CHERRY [id number] Juliane 07:45:00 07:45:00 Seybol d 2023-05-19 2023-05-19 Outpatient JULIANE TORREZ [id number] Juliane 08:30:00 08:30:00 JORDYN Seybol d 2023-05-09 2023-05-09 Outpatient JULIANE TORREZ [id number] Juliane 00:00:00 00:00:00 JORDYN Seybol d 2023-05-09 2023-05-09 Outpatient JULIANE TORREZ JULIANE [id number] Juliane 00:00:00 00:00:00 JORDYN Seybol d 2023-04-18 2023-04-18 Outpatient JULIANE TORREZ JULIANE [id number] Juliane 00:00:00 00:00:00 JORDYN Seybol d 2023-04-09 2023-04-09 Outpatient LORE JULIANE JULIANE [id number] Juliane 14:15:00 14:15:00 JORDYN Seybol d 2021-06-28 2021-06-28 Emergency [facility] [id number] Univers 00:44:00 01:52:00 Evita Perdomo [place] [id number] chuck [facility] [id number] [facility] [id number] [place] [id number] Branch 2021-06-28 2021-06-28 Emergency X KERRY JACINTO ERT [id number] Univers 00:44:00 00:44:00 EVITA woods [facility] 2019-01-27 2019-01-27 Out[id number] Common 09:30:00 09:30:00 [facility] Results This patient has no known results.
[2023-08-13] MEDS ORDERED: MORPHINE 4 MG/ML SYR ONE (00:28)
[2023-08-13] MEDS ORDERED: DIAZEPAM 10 MG/2 ML INJ SYRINGE ONE (00:29)
[2023-08-13] MEDS ORDERED: KETOROLAC 30 MG/ML INJ ONE (00:30)
[2023-08-13] MEDS ORDERED: ONDANSETRON 4 MG/2 ML VIAL ONE (00:30)
[2023-08-13] MEDS ORDERED: NA CHLORIDE 0.9% 50 ML ONE (00:31)
[2023-08-13] MEDS ORDERED: NA CHLORIDE 0.9% 1,000 ML ONE (00:31)
--- NOTE | 2023-08-13 02:15 | ER ---
Nurse's Notes [facility] Name: Ace Brasher Age: 32 yrs Sex: Male : 1990 Arrival Date: 08/12/2023 Time: 23:57 Bed 5 Private MD: Diagnosis: Fracture of clavicle;Right distal clavicle fracture with extension into AC joint, closed nondisplaced fracture Presentation: 08/13 00:11 Chief complaint: Patient states: "I was running and fell" pt c/o right shoulder pain. as6 Coronavirus screen: At this time, the client does not indicate any symptoms associated with coronavirus-19. Ebola Screen: No symptoms or risks identified at this time. Initial Sepsis Screen: Does the patient meet any 2 criteria? No. Patient's initial sepsis screen is negative. Does the patient have a suspected source of infection? No. Patient's initial sepsis screen is negative. Risk Assessment: Do you want to hurt yourself or someone else? Patient reports no desire to harm self or others. Onset of symptoms was August 12, 2023. 00:11 Acuity: KRISTIE 3 as6 00:11 Method Of Arrival: Ambulatory as6 Historical: - Allergies: 00:12 No Known Allergies; as6 - PMHx: 00:13 histiocytosis; as6 - PSHx: 00:13 turmor removal; as6 - Immunization history:: Adult Immunizations up to date. - Social history:: Smoking status: Patient reports the use of cigarette tobacco products, denies chronic smoking, but will smoke occasionally. - Family history:: not pertinent. Screenin:32 [facility] ED Fall Risk Assessment (Adult) History of falling in the last 3 months, nw1 including since admission Yes- single mechanical fall (1 pt) Confusion or Disorientation No (0 pts) Intoxicated or Sedated No (0 pts) Impaired Gait No (0 pts) Mobility Assist Device Used No (0 pt) Altered Elimination No (0 pt) Score/Fall Risk Level 0 - 2 = Low Risk Oriented to surroundings, Maintained a safe environment, Educated pt \\T\\ family on fall prevention, incl call for assistance when getting out of bed, Assessed \\T\\ reinforced patient's understanding of fall precautions, Provided non-skid footwear, Hourly rounding (assess needs \\T\\ fall precautionary measures) done, Used ambulatory aids as needed (educated on \\T\\ assisted with), Used gait belt as appropriate. Abuse screen: Denies threats or abuse. Denies injuries from another. Nutritional screening: No deficits noted. Tuberculosis screening: No symptoms or risk factors identified. Assessment: 00:28 General: Appears in no apparent distress. uncomfortable, obese, Behavior is calm, nw1 cooperative, appropriate for age. Pain: Complains of pain in right arm Pain currently is 8 out of 10 on a pain scale. Quality of pain is described as aching, Pain began 30 min ago. Aggravated by pt was running and fell down on right shoulder. Previous dislocation on the same shoulder in the past. Neuro: No deficits noted. Cardiovascular: No deficits noted. Respiratory: No deficits noted. GI: No deficits noted. : No deficits noted. Derm: No deficits noted. Musculoskeletal: Range of motion: limited in right shoulder right shoulder. Vital Signs: 00:11 BP 128 / 104; Pulse 82; Resp 18 S; Temp 98.8(TE); Pulse Ox 99% on R/A; Weight 112.49 kg as6 (R); Height 5 ft. 7 in. (R); Pain 9/10; 00:28 BP 138 / 100; Pulse 78; Pulse Ox 98% ; nw1 01:00 BP 112 / 61; Pulse 82; Pulse Ox 95% ; nw1 00:11 Body Mass Index 38.84 (112.49 kg, 170.18 cm) as6 00:11 Pain Scale: Adult as6 ED Course: 00:00 Patient arrived in ED. jj6 00:00 Carlos Peraza MD is Attending Physician. sp4 00:12 Triage completed. as6 00:14 Arm band placed on. as6 00:27 Robert Hart, RN is Primary Nurse. la4 00:32 Resting quietly. Awaiting for x-ray. nw1 00:32 Patient has correct armband on for positive identification. Bed in low position. Call nw1 light in reach. Side rails up X2. Valuables Given to family. hoodie and shirt removed by method of cutting off due to pt being unable to move RUE. Provided Education on: POC and medication administration. Client placed on continuous cardiac and pulse oximetry monitoring. NIBP monitoring applied. ekg monitor tech on. Pulse ox on. NIBP on. Door closed. Noise minimized. Lights dimmed. Pillow given. pillow placed under RUE for comfort. 00:32 Inserted saline lock: 20 gauge in left antecubital area, using aseptic technique. Blood nw1 collected. 01:19 Shoulder Right (2 View) XRAY In Process Unspecified. EDMS 01:19 Chest Single View XRAY In Process Unspecified. EDMS 01:19 Humerus Right XRAY In Process Unspecified. EDMS 02:14 Lei Graves MD is Referral Physician. sp4 02:46 No provider procedures requiring assistance completed. IV discontinued, intact, nw1 bleeding controlled, No redness/swelling at site. Pressure dressing applied. Administered Medications: 00:28 Drug: Ketorolac IVP 30 mg IVP once Route: IVP; Rate: bolus; Site: left antecubital; la4 00:28 Drug: NS 0.9% IV 1000 ml IV at 1 bolus Per protocol; 1000 mL bolus Route: IV; Rate: 1 la4 bolus; Infused Over: 30 mins; Site: left antecubital; Delivery: Primary tubing; 00:28 Drug: Diazepam IVP 5 mg IVP once Route: IVP; Rate: bolus; Infused Over: 2 mins; Site: la4 left antecubital; 00:29 Drug: morphine IVP or IV 8 mg IVP once over 4 mins {Note: given slow ivp over 4 min.} la4 Route: IVP; Rate: bolus; Infused Over: 4 mins; Site: left antecubital; 00:29 Drug: Ondansetron IVP 4 mg IVP once; over 2 minutes Route: IVP; Rate: bolus; Infused la4 Over: 1 mins; Site: left antecubital; 02:25 Drug: Ibuprofen PO 800 mg PO once Route: PO; la4 02:26 Drug: Promethazine PO 25 mg PO once Route: PO; la4 02:27 Drug: [place] PO 10 mg-325 mg 1 tabs PO once Route: PO; la4 02:27 Drug: Cyclobenzaprine PO 10 mg PO once Route: PO; la4 Medication: 00:32 VIS not applicable for this client. nw1 Outcome: 02:15 Discharge ordered by . sp4 02:46 Discharged to home ambulatory, nw1 02:46 Condition: good 02:46 Discharge instructions given to patient, Instructed on discharge instructions, follow up and referral plans. Demonstrated understanding of instructions, follow-up care, 02:47 Patient left the ED. nw1 Signatures: Dispatcher [employer] JELANI Garcia LinetteMatthew Thorpe, RN RN as6 Carlos Peraza MD MD sp4 Robert Hart RN RN la4 Marcia Salter RN RN nw1 Corrections: (The following items were deleted from the chart) 00:14 00:12 PMHx:; as6 as6 00:14 00:12 PMHx:; as6 as6
--- NOTE | 2023-08-13 02:16 | EDPHYS ---
Physician Documentation [facility] Name: Ace Brasher Age: 32 yrs Sex: Male : 1990 Arrival Date: 08/12/2023 Time: 23:57 Bed 5 Private MD: ED Physician Carlos Peraza HPI: 08/13 00:00 This 32 yrs old Male presents to ER via Unassigned with complaints of Fall sp4 Injury, Shoulder Injury. 00:09 Patient states that he was running and fell onto the concrete just 5 minutes prior to sp4 arrival. Patient sustained a right shoulder injury he reports is possibly out of socket. Patient has moderate to severe pain right shoulder with radiation into the right clavicle right shoulder girdle as well. Shoulder does not appear dislocated on presentation . . Historical: - Allergies: 00:12 No Known Allergies; as6 - PMHx: 00:13 histiocytosis; as6 - PSHx: 00:13 turmor removal; as6 - Immunization history:: Adult Immunizations up to date. - Social history:: Smoking status: Patient reports the use of cigarette tobacco products, denies chronic smoking, but will smoke occasionally. - Family history:: not pertinent. ROS: 00:09 Constitutional: Negative for fever, chills, and weight loss, positive for right sp4 shoulder pain and injury 00:09 All other systems are negative, Exam: 00:15 Constitutional: This is a well developed, well nourished patient who is awake, alert, sp4 and moderate distress secondary to pain Head/Face: Normocephalic, atraumatic. Eyes: Pupils equal round and reactive to light, extra-ocular motions intact. Lids and lashes normal. Conjunctiva and sclera are not injected. Cornea within normal limits. Periorbital areas with no swelling, redness, or edema. ENT: Nares patent. No nasal discharge, no septal abnormalities noted. Tympanic membranes are normal and external auditory canals are clear. Oropharynx with no redness, swelling, or masses, exudates, or evidence of obstruction, uvula midline. Mucous membranes moist. Neck: Trachea midline, no thyromegaly or masses palpated, and no cervical lymphadenopathy. Supple, full range of motion without nuchal rigidity, or vertebral point tenderness. Chest/axilla: Normal chest wall appearance and motion. Nontender with no deformity. No lesions are appreciated. Cardiovascular: Regular rate and rhythm with a normal S1 and S2. No gallops, murmurs, or rubs. Normal PMI, no JVD. No pulse deficits. Respiratory: Lungs have equal breath sounds bilaterally, clear to auscultation and percussion. No rales, rhonchi or wheezes noted. No increased work of breathing, no retractions or nasal flaring. Abdomen/GI: Soft, non-tender, with normal bowel sounds. No distension or tympany. No guarding or rebound. No evidence of tenderness throughout. Back: No spinal tenderness. No costovertebral tenderness. Skin: Warm, dry with normal turgor. Normal color with no rashes, no lesions, and no evidence of cellulitis. MS/ Extremity: Pulses equal, no cyanosis. Neurovascular intact. Is present right radial location, right upper extremity pain at the right shoulder, right clavicle and right pectoral girdle, no sign of dislocation, no sign of deformity, neurovascular status intact, right shoulder range of motion markedly limited. Neuro: Awake and alert, GCS 15, oriented to person, place, time, and situation. Cranial nerves II-XII grossly intact. Motor strength 5/5 in all extremities. Sensory grossly intact. Psych: Awake, alert, with orientation to person, place and time. Behavior, mood, and affect are within normal limits Vital Signs: 00:11 BP 128 / 104; Pulse 82; Resp 18 S; Temp 98.8(TE); Pulse Ox 99% on R/A; Weight 112.49 kg as6 (R); Height 5 ft. 7 in. (R); Pain 9/10; 00:28 BP 138 / 100; Pulse 78; Pulse Ox 98% ; nw1 01:00 BP 112 / 61; Pulse 82; Pulse Ox 95% ; nw1 00:11 Body Mass Index 38.84 (112.49 kg, 170.18 cm) as6 00:11 Pain Scale: Adult as6 MDM: 00:01 Patient medically screened. sp4 01:56 ED course: Chest X ray - CLINICAL HISTORY: 32 years, Male, R shoulder injury sp4 COMPARISON: None FINDINGS: 1 x-ray views of the chest (portable) was obtained. No prior films are available for comparison. Day lung volume is slightly decreased. The cardiomediastinal silhouette demonstrate to be within normal limits. The heart is normal in size. The thoracic aorta is unremarkable. The pulmonary vasculature is normal distribution. Costophrenic angles are sharp. No areas of consolidation or masses are seen. There is is 3 component fracture distal portion of the distal clavicle without extension into the AC joint. No significant rib fractures/or evidence for pneumothorax. The rest of the soft tissue and bony structures demonstrate to be unremarkable. IMPRESSION: No acute cardiopulmonary disease.. ED course: X ray shoulder - and humerus R COMPARISON: None. FINDINGS: 2 views of the right humerus and 2 views of the right shoulder. Acute comminuted fracture of the distal right clavicle. No glenohumeral dislocation. The humerus is intact. Normal osseous mineralization. IMPRESSION: Acute comminuted fracture of the distal right clavicle.. ED course: R shoulder - CLINICAL HISTORY: injury, pain Shoulder Right 2 View COMPARISON: None. FINDINGS: 2 views of the right humerus and 2 views of the right shoulder. Acute comminuted fracture of the distal right clavicle. No glenohumeral dislocation. The humerus is intact. Normal osseous mineralization. IMPRESSION: Acute comminuted fracture of the distal right clavicle. 02:10 Differential diagnosis: contusion, fracture, laceration, multiple trauma, sprain, sp4 strain. Data reviewed: vital signs, nurses notes, radiologic studies, plain films. Consideration of Admission/Observation Escalation of care including admission/observation considered. ED course: X-rays have revealed 3 component distal right clavicular fracture with extension into the acromioclavicular joint. No significant rib fractures, intact humerus, basically acute comminuted fracture of the distal right clavicle and 3 components. Patient was placed in the right arm sling with immobilization. Advised to keep arm in the sling at all times and see orthopedist or follow-up in the next 2 to 3 days. . 08/13 00:51 Order name: Shoulder Right (2 View) XRAY sp4 08/13 00:51 Order name: Chest Single View XRAY sp4 08/13 00:51 Order name: Humerus Right XRAY sp4 08/13 00:09 Order name: Saline Lock; Complete Time: 00:28 sp4 Administered Medications: 00:28 Drug: Ketorolac IVP 30 mg IVP once Route: IVP; Rate: bolus; Site: left antecubital; la4 00:28 Drug: NS 0.9% IV 1000 ml IV at 1 bolus Per protocol; 1000 mL bolus Route: IV; Rate: 1 la4 bolus; Infused Over: 30 mins; Site: left antecubital; Delivery: Primary tubing; 00:28 Drug: Diazepam IVP 5 mg IVP once Route: IVP; Rate: bolus; Infused Over: 2 mins; Site: la4 left antecubital; 00:29 Drug: morphine IVP or IV 8 mg IVP once over 4 mins {Note: given slow ivp over 4 min.} la4 Route: IVP; Rate: bolus; Infused Over: 4 mins; Site: left antecubital; 00:29 Drug: Ondansetron IVP 4 mg IVP once; over 2 minutes Route: IVP; Rate: bolus; Infused la4 Over: 1 mins; Site: left antecubital; 02:25 Drug: Ibuprofen PO 800 mg PO once Route: PO; la4 02:26 Drug: Promethazine PO 25 mg PO once Route: PO; la4 02:27 Drug: [place] PO 10 mg-325 mg 1 tabs PO once Route: PO; la4 02:27 Drug: Cyclobenzaprine PO 10 mg PO once Route: PO; la4 Disposition Summary: 08/13/23 02:15 Discharge Ordered Problem: new sp4 Symptoms: have improved sp4 Condition: Stable sp4 Diagnosis - Fracture of clavicle sp4 - Right distal clavicle fracture with extension into AC joint, closed nondisplaced sp4 fracture Followup: sp4 - With: Lei Graves MD - When: 2 - 3 days - Reason: Recheck today's complaints Discharge Instructions: - Discharge Summary Sheet sp4 - Clavicle Fracture, [id number] sp4 Forms: - Patient Portal Instructions sp4 Prescriptions: - Ibuprofen 800 mg Oral Tablet - take 1 tablet ORAL route every 8 hours As needed take with food; 30 tablet; sp4 Refills: 0, Product Selection Permitted - Cyclobenzaprine 10 mg Oral Tablet - take 1 tablet ORAL route every 8 hours As needed; 30 tablet; Refills: 0, sp4 Product Selection Permitted - Tramadol 50 mg Oral tablet - take 1 tablet ORAL route every 8 hours as needed for pain; 20 tablet; Refills: sp4 0, Product Selection Permitted - promethazine 25 mg Oral Tablet - take 1 tablet ORAL route every 6 hours As needed; 20 tablet; Refills: 0, sp4 Product Selection Permitted Signatures: Dispatcher [employer] Matthew Vo, RN RN as6 Carlos Peraza MD MD sp4 Robert Hart RN RN la4 Corrections: (The following items were deleted from the chart) 00:14 00:12 PMHx:; as6 as6 00:14 00:12 PMHx:; as6 as6
[2023-08-13] MEDS ORDERED: CYCLOBENZAPRINE 10 MG TAB ONE (02:29)
[2023-08-13] MEDS ORDERED: HYDROCODONE/APAP 10/325 TAB ONE (02:30)
[2023-08-13] MEDS ORDERED: PROMETHAZINE 25 MG TABLET ONE (02:30)
[2023-08-13] MEDS ORDERED: IBUPROFEN 400 MG TAB ONE (02:30)
--- NOTE | 2023-08-13 12:06 | RAD REPORT ---
EXAM DESCRIPTION: RAD - Chest Single View - 08/13/2023 1:17 am CLINICAL HISTORY: 32 years, Male, R shoulder injury COMPARISON: None FINDINGS: 1 x-ray views of the chest (portable) was obtained. No prior films are available for fidelia rison. Day lung volume is slightly decreased. The cardiomediastinal silhouette demonstrate to be with in normal limits. The heart is normal in size. The thoracic aorta is unremarkable. The pulmonary vasc ulature is normal distribution. Costophrenic angles are sharp. No areas of consolidation or masses are seen. There is is 3 component fracture distal portion of the distal clavicle without extension in to the AC joint. No significant rib fractures/or evidence for pneumothorax. The rest of the soft tiss ue and bony structures demonstrate to be unremarkable. IMPRESSION: No acute cardiopulmonary disease. Electronically signed by: Norberto Holley MD 08/13/2023 1:43 AM CDT Due to temporary technical issues with the PACS/Fluency reporting system, reports are being signed by the in house radiologist without review as a courtesy to ensure prompt reporting. The interpreting r adiologist is fully responsible for the content of the report.
--- NOTE | 2023-08-13 12:07 | RAD REPORT ---
EXAM DESCRIPTION: RAD - Humerus Right - 08/13/2023 1:17 am CLINICAL HISTORY: Injury, pain Shoulder Right 2 View COMPARISON: None. FINDINGS: 2 views of the right humerus and 2 views of the right shoulder. Acute comminuted fracture of the distal right clavicle. No glenohumeral dislocation. The humerus is intact. Normal osseous mine ralization. IMPRESSION: Acute comminuted fracture of the distal right clavicle. Electronically signed by: Seth Mora 08/13/2023 1:42 AM CDT Due to temporary technical issues with the PACS/Fluency reporting system, reports are being signed by the in house radiologist without review as a courtesy to ensure prompt reporting. The interpreting r adiologist is fully responsible for the content of the report.
--- NOTE | 2023-08-13 12:08 | RAD REPORT ---
EXAM DESCRIPTION: RAD - Shoulder Right 2 View - 08/13/2023 1:17 am CLINICAL HISTORY: Injury, pain Shoulder Right 2 View COMPARISON: None. FINDINGS: 2 views of the right humerus and 2 views of the right shoulder. Acute comminuted fracture of the distal right clavicle. No glenohumeral dislocation. The humerus is intact. Normal osseous mine ralization. IMPRESSION: Acute comminuted fracture of the distal right clavicle. Electronically signed by: Seth Mora 08/13/2023 1:42 AM CDT Due to temporary technical issues with the PACS/Fluency reporting system, reports are being signed by the in house radiologist without review as a courtesy to ensure prompt reporting. The interpreting r adiologist is fully responsible for the content of the report.
[2023-08-14 15:32] VITALS: BP 112/61; TEMP 98.8; O2SAT 95
== END 2023-08-13 02:47 | disposition home or self-care (01) ==
LOC: ER 23:57
DX: S42.031A Displaced fracture of lateral end of right clavicle, initial encounter for closed fracture (principal); Z72.0 Tobacco use
CPT/HCPCS: 71045; 73060; 73030; Q0169; J3360; J2405; J7030